=== PATIENT | male | born 1940 ===

== ENCOUNTER 2024-08-28 15:14 | Inpatient (IN) | payer OTHER ==
[2024-08-28 16:35] VITALS: BMI 22.6
[2024-08-28 17:10] LABS: BASO % 0.5 % (0-2.0); HEMATOCRIT 34.1 % (35.4-49); HEMOGLOBIN 11.3 GM/dL (11.7-16.9); LYMPH % 15.9 % (8-40); MCH 29.3 pg (25.7-33.7); MCHC 33.1 g/dl (32.0-35.9); MEAN CELL VOLUME 88.4 fl (80-96); MEAN PLT VOLUME 7.4 fl (7.5-11.1); MONO % 8.8 % (3.8-10.2); NEUT % 62.8 % (42.8-82.8); PLATELET COUNT 238 10^3/uL (134-434); RBC 3.85 M/mm3 (4.00-5.60); RDW 15.2 % (11.9-15.9); WHITE BLOOD COUNT 5.6 K/mm3 (4.0-10.0)
[2024-08-28] MEDS: DIPHTH,PERTUSS(ACELL),TET 0.5 ML DISP.SYRIN IM ONE (17:14)
[2024-08-28 17:16] LABS: PH,URINE 7.5 (5.0-8.0); URINE APPEARANCE CLEAR; URINE BILIRUBIN NEGATIVE (NEGATIVE); URINE COLOR YELLOW; URINE GLUCOSE (UA) NEGATIVE (NEGATIVE); URINE KETONE NEGATIVE (NEGATIVE); URINE LEUK ESTERASE NEGATIVE (NEGATIVE); URINE NITRITE NEGATIVE (NEGATIVE); URINE PROTEIN NEGATIVE (NEGATIVE)
[2024-08-28 17:29] LABS: POTASSIUM 4.6 mmol/L (3.5-5.1)
[2024-08-28 17:31] LABS: ALBUMIN 3.3 g/dl (3.4-5.0); BLOOD UREA NITROGEN 26.1 mg/dL (7-18); CALCIUM 8.4 mg/dL (8.5-10.1)
[2024-08-28 17:34] LABS: CREATININE 0.9 mg/dL (0.55-1.3)
[2024-08-28 17:36] LABS: BILIRUBIN,TOTAL 0.2 mg/dL (0.2-1); TOT PROT 6.3 g/dl (6.4-8.2)
[2024-08-28] MEDS: SODIUM CHLORIDE 1,000 ML IV SCH (23:41)
[2024-08-28] MEDS ORDERED: MELATONIN 5 MG TABLETS ONE (23:42)
[2024-08-28] MEDS ORDERED: TAMSULOSIN HCL 0.4 MG CAP ONE (23:42)
[2024-08-28] MEDS: MELATONIN 5 MG TABLETS PO SCH (23:51)
[2024-08-28] MEDS: TAMSULOSIN HCL 0.4 MG CAP PO SCH (23:51)
[2024-08-29 07:44] LABS: BASO % 0.9 % (0-2.0); EOS % 14.5 % (0-4.5); HEMATOCRIT 31.9 % (35.4-49); HEMOGLOBIN 10.6 GM/dL (11.7-16.9); LYMPH % 20.1 % (8-40); MCH 29.5 pg (25.7-33.7); MCHC 33.1 g/dl (32.0-35.9); MEAN CELL VOLUME 89.2 fl (80-96); MEAN PLT VOLUME 7.6 fl (7.5-11.1); MONO % 11.1 % (3.8-10.2); NEUT % 53.4 % (42.8-82.8); PLATELET COUNT 216 10^3/uL (134-434); RBC 3.58 M/mm3 (4.00-5.60); RDW 14.6 % (11.9-15.9); WHITE BLOOD COUNT 4.7 K/mm3 (4.0-10.0)
[2024-08-29 08:00] LABS: POTASSIUM 4.3 mmol/L (3.5-5.1)
[2024-08-29 08:09] LABS: BLOOD UREA NITROGEN 21.1 mg/dL (7-18); CALCIUM 8.4 mg/dL (8.5-10.1)
[2024-08-29 08:12] LABS: CREATININE 0.8 mg/dL (0.55-1.3)
[2024-08-29 08:13] LABS: BILIRUBIN,TOTAL 0.4 mg/dL (0.2-1); TOT PROT 5.8 g/dl (6.4-8.2)
[2024-08-29] MEDS: PRAMIPEXOLE DIHYDROCHLORIDE 0.5 MG TABLET PO SCH (10:48)
[2024-08-29] MEDS: ESCITALOPRAM OXALATE 20 MG TABLET PO SCH (10:48)
[2024-08-29] MEDS: PHENYTOIN NA EXTENDED 100 MG CAPSULE (FP) PO SCH ×2 (13:05→14:30)
[2024-08-29] MEDS: BACITRACIN ZINC 15 GM TUBE TOPICAL OINTMENT TP SCH (14:29)
[2024-08-30] MEDS: BACITRACIN ZINC 15 GM TUBE TOPICAL OINTMENT TP SCH (11:25)
[2024-08-31] MEDS: ACETAMINOPHEN 1000 MG/100 ML BAG IVPB PRN (01:17)
[2024-08-31 08:59] VITALS: BP 129/79; PULSE 66; RESP 16; TEMP 97.9
== END 2024-08-31 13:30 | DRG 884 ==
LOC: JER 15:14 → JERBED 19:42 → J4W 08-29 01:16
PROVIDERS: ADMIT Internal Medicine; ATTEND Internal Medicine
DX: F03.90 Unspecified dementia, unspecified severity, without behavioral disturbance, psychotic disturbance, mood disturbance, and anxiety (principal); S05.31XA Ocular laceration without prolapse or loss of intraocular tissue, right eye, initial encounter; G40.909 Epilepsy, unspecified, not intractable, without status epilepticus; N40.0 Benign prostatic hyperplasia without lower urinary tract symptoms; S02.2XXA Fracture of nasal bones, initial encounter for closed fracture; W19.XXXA Unspecified fall, initial encounter; Y93.9 Activity, unspecified; Y92.89 Other specified places as the place of occurrence of the external cause; Y99.9 Unspecified external cause status
CPT/HCPCS: 36415; 70450-TC; 70486-TC; 71045-TC-FY; 72125-TC; 72170-TC-FY; 80053; 80185; 80186; 81003; 82962; 83605; 83735; 84100; 84484; 85025; 86682; 87086; 90715; 93005; 93010; 97116-GP; 97162-GP; 99285-25; J0131